=== PATIENT | male | born 1975 | race Hispanic/Latino ===

== ENCOUNTER 2021-01-30 21:20 | Emergency (ER) | payer BC, OTHER ==
[~2021-01-30] VITALS: Ht 172.7 cm; Wt 90.7 kg
[2021-01-30] MEDS ORDERED: ACETAMINOPHEN 325 MG TAB PO STA (21:28)
[2021-01-30] MEDS ORDERED: ACETAMINOPHEN 325 MG TAB ONE (22:25)
== END 2021-01-30 23:42 | disposition home or self-care (01) ==
LOC: ER 21:27
DX: S06.0X0A Concussion without loss of consciousness, initial encounter (principal); R42 Dizziness and giddiness; W01.0XXA Fall on same level from slipping, tripping and stumbling without subsequent striking against object, initial encounter; Y93.01 Activity, walking, marching and hiking; Y92.512 Supermarket, store or market as the place of occurrence of the external cause
CPT/HCPCS: 70450; 72125; 99283